=== PATIENT | male | born 1965 | race Caucasian/White ===

== ENCOUNTER 2019-05-21 21:29 | Inpatient (IN) | payer OTHER ==
[~2019-05-21] VITALS: Ht 182.9 cm; Wt 80.0 kg
[2019-05-21 21:30] VITALS: BP 134/69
[2019-05-21] MEDS ORDERED: DOXYCYCLINE 10100 M1 PO (21:40)
[2019-05-21 22:10] LABS: ABSOLUTE BASOPHILS 0.1 thou/uL (0.0-0.2); ABSOLUTE EOSINOPHILS 0.2 thou/uL (0.0-0.7); ABSOLUTE MONOCYTES 0.6 thou/uL (0.0-1.2); ABSOLUTE NEUTROPHILS 7.3 thou/uL (1.6-8.1); BASOPHILS 0.7 %; EOSINOPHILS 1.5 %; HEMATOCRIT 40.3 % (42.0-52.0); HEMOGLOBIN 13.9 gm/dL (14.0-18.0); LYMPHOCYTES 19.8 %; MCH 30.3 pg (26.0-34.0); MCHC 34.4 g/dL (28.0-37.0); MCV 87.9 fL (80.0-100.0); MONOCYTES 6.1 %; MPV 7.3 fl. (7.2-11.1); NUCLEATED RBCS 0 /100WBC; PLATELET COUNT* 289 thou/uL (150-400); POLYS 71.9 %; RBC 4.58 mil/uL (4.50-6.00); RDW-CV 12.2 % (10.5-14.5); WBC 10.2 thou/uL (4.0-11.0)
[2019-05-21 22:22] LABS: APTT 25.7 Seconds (25.0-31.3); CALCIUM 8.8 mg/dL (8.5-10.1); CREATININE 1.1 mg/dL (0.6-1.3); POTASSIUM 3.7 mmol/L (3.5-5.1); PROTIME 10.7 Seconds (9.20-11.50)
[2019-05-21 22:26] LABS: ALBUMIN 4.1 g/dL (3.4-5.0); TOTAL BILIRUBIN 0.3 mg/dL (<0.1-1.0); TOTAL PROTEIN 7.4 g/dL (6.4-8.2)
[2019-05-21 23:31] VITALS: BP 125/80
[2019-05-22] VITALS: BP 105/53
[2019-05-22 08:00] VITALS: BP 110/53
[2019-05-22 10:58] VITALS: BP 112/60
[2019-05-22 12:48] VITALS: BP 112/60
[2019-05-22] MEDS ORDERED: KEFLEX500 M1 PO (13:07)
[2019-05-22 13:08] VITALS: BP 112/60
--- NOTE | 2019-05-22 16:15 | EKG ---
[place] [address] ELECTROCARDIOGRAM REPORT Name: ANNIE RICHARDSON Room: [address] DIS IN M.R.#: [id number] Admission: 05/21/19 Attend Phys: Kwame Barkley MD Discharge: 05/22/19 Date of : 63 Report #: [id number] THIS REPORT FOR: //name// [facility] ED Test Date: 2019-05-21 Test Time: 22:15:59 Pat Name: ANNIE RICHARDSON Department: Room: [address] Gender: M Engineer Process: ALBERTO : 1965 Requested By: Kwame Barkley Order Number: [id number] Katarina MD: Sharan Newton Measurements Intervals [place] Rate: 67 P: 70 IA: 163 QRS: 62 QRSD: 82 T: 53 QT: 381 QTc: 403 Interpretive Statements Sinus rhythm Possible left atrial enlargement ST elev, probable normal early repol pattern No previous ECG available for comparison Electronically Signed On 05-22-2019 16:15:08 CDT by Sharan Newton [email or web address] <ELECTRONICALLY SIGNED> By: Sharan Newton MD, [facility] 05/22/19 1615 2215 14 Sharan Newton MD, [facility] /EPI
--- NOTE | 2019-05-23 07:32 | CON ---
[address] [address] CONSULTATION Name: ANNIE RICHARDSON Room: [address] IN M.R.#: [id number] Admission: 05/21/19 Attend Phys: Kwame Barkley MD Discharge: 05/22/19 Date of : 63 Report #: [id number] THIS REPORT FOR: //name// CC: Favian Barkley DATE OF SERVICE: 05/21/2019 INFECTIOUS DISEASE CONSULTATION ATTENDING PHYSICIAN: Kwame Barkley MD REASON FOR EVALUATION: Left lower extremity proximal aspect inflammatory eruption component of cellulitis. HISTORY OF PRESENT ILLNESS: Chart reviewed, patient examined. This is a 53-year-old otherwise healthy male who believes he was bitten by an insect, perhaps a spider several days ago. He was evaluated due to increasing inflammation. He describes redness, swelling at the site of the lateral mid to proximal aspect of his left thigh. He was evaluated, started on doxycycline given the corticosteroids. Initially felt to have improved only to experience what he thought was a relapse with increasing redness, especially the inferior portion of the site that was several centimeters in size with perhaps some lymphangitic spread of red streaking. Denies any significant adenopathy, has not really been systemically ill. Denies pulmonary or gastrointestinal related complaints. Appetite has been good. Empirically started on cephalexin. In addition to the doxycycline. At this point he has no pain. There is some mild degree of erythema, is not tender per his description. Labs were otherwise unremarkable. MEDICATIONS: Include cephalexin, doxycycline, p.r.n. analgesics and antiemetics. PAST MEDICAL HISTORY: He has had previous hernia repair. SOCIAL HISTORY: Nonsmoker, no ethanol, no illicit drug use. FAMILY HISTORY: Noncontributory. REVIEW OF SYSTEMS: Otherwise, unremarkable 10-point review of systems with exception of the above. PHYSICAL EXAMINATION: GENERAL: Alert, cooperative, appropriate, not encephalopathic, appears to be reasonably well nourished. VITAL SIGNS: Temperature 97.8, pulse 60, respirations 16, blood pressure [address] [address] CONSULTATION Name: ANNIE RICHARDSON Room: [address]#: [id number] Admission: 05/21/19 Attend Phys: Kwame Barkley MD Discharge: 05/22/19 Date of : 63 Report #: [id number] /[id number]. SKIN: Warm, dry, no rashes. HEENT: Unremarkable. NECK: Supple. Normocephalic. Extraocular muscles intact. LUNGS: Clear to auscultation bilaterally. HEART: Regular rate and rhythm without murmur. ABDOMEN: Soft, nontender, nondistended. EXTREMITIES: Left thigh has [id number] degree of inflammation noted. It really is not palpably tender. Appears to be fading lymphangitis. LABORATORY AND X-RAY DATA: CBC: White count of 10.2, H and H 13.9 and 40.3, platelets of 289. Electrolytes: Sodium 141, potassium 3.7, chloride 103, bicarbonate is 29, anion gap of 9, BUN and creatinine 14 and 1.1, glucose of 94. LFTs unremarkable. Albumin 4, total protein of 7.4. Estimated GFR 70, Lactic acid 1.0. Blood cultures are sterile thus far. ASSESSMENT AND PLAN: Left thigh inflammatory eruption, likely component of skin and soft tissue infection. I cannot be entirely certain if there was not any on the date of admission. At this point, he is not systemically toxic nor does have a really localizing signs or symptoms other than what was seen visually. We will continue therapy. I think the likely it is more streptococcal in origin given the lymphangitic appearance. Continue those treatments over the next 4 to 7 days. I will see him back in 2 weeks. <ELECTRONICALLY SIGNED> By: Franklin Ferguson MD 05/23/19 0732 [id number] Ferguson MD /nt
== END 2019-05-22 14:35 | disposition home or self-care (01) | DRG 603 ==
LOC: M.ERS 21:29 → M.TBA-ER 22:10 → M.2W 22:10
PROVIDERS: Nurse Practitioner Family; ADMIT Family Medicine
DX: L03.116 Cellulitis of left lower limb (principal); A68.1 Tick-borne relapsing fever; S80.862A Insect bite (nonvenomous), left lower leg, initial encounter; W57.XXXA Bitten or stung by nonvenomous insect and other nonvenomous arthropods, initial encounter; Y93.89 Activity, other specified; Y92.89 Other specified places as the place of occurrence of the external cause; Y99.8 Other external cause status